=== PATIENT | female | born 1975 | race Hispanic/Latino ===

== ENCOUNTER 2021-12-09 18:47 | Emergency (ER) | payer OTHER ==
[~2021-12-09] VITALS: Ht 172.7 cm; Wt 79.4 kg
[2021-12-09 22:22] VITALS: BP 110/63
[2021-12-09] MEDS ORDERED: MAGNESIUM CITRATE 296 ML SOLUTION ONE (22:36)
[2021-12-09] MEDS ORDERED: MAGNESIUM CITRATE 296 ML SOLUTION PO ONE (23:00)
== END 2021-12-09 22:43 | disposition home or self-care (01) ==
LOC: EDH 18:47
DX: K59.00 Constipation, unspecified (principal); R14.0 Abdominal distension (gaseous); F41.9 Anxiety disorder, unspecified; Z98.890 Other specified postprocedural states
CPT/HCPCS: 74018; 81025

== ENCOUNTER 2022-05-08 16:44 | Emergency (ER) | payer OTHER ==
[~2022-05-08] VITALS: Ht 172.7 cm; Wt 77.3 kg
[2022-05-08 17:03] LABS: BASOPHILS % (AUTO) 0.4 % (0.0-5.0); EOSINOPHILS % (AUTO) 0.9 % (0.0-8.0); HEMATOCRIT 39.7 % (36-48); LYMPHOCYTES % (AUTO) 18.1 % (21.0-51.0); MEAN CORPUSCULAR HEMOGLOBIN 29.9 pg (27.0-33.0); MONOCYTES % (AUTO) 7.5 % (3.0-13.0); NEUTROPHILS % (AUTO) 72.8 % (40.0-77.0); PLATELET COUNT (AUTO) 211 K/uL (130-400); RED BLOOD CELL COUNT(AUTO) 4.51 MIL/uL (4.00-5.50); RED CELL DISTRIBUTION WIDTH 12.3 % (11.0-15.5); WHITE BLOOD COUNT (AUTO) 7.6 K/uL (4.8-10.8)
[2022-05-08 17:48] LABS: CREATININE 0.7 mg/dL (0.5-1.5); POTASSIUM 3.9 mmol/L (3.5-5.1)
[2022-05-08 17:52] LABS: ALBUMIN 3.8 g/dL (3.5-5.0); BILIRUBIN,TOTAL 0.2 mg/dL (0.2-1.0); TOTAL PROTEIN, SERUM 7.3 g/dL (6.0-8.3)
[2022-05-08] MEDS ORDERED: LORAZEPAM 2 MG/ML 1 ML VIAL ONE (18:14)
[2022-05-08] MEDS ORDERED: HALOPERIDOL INJ 5 MG/ML VIAL IV SCH (21:30)
[2022-05-08] MEDS ORDERED: DiphenhydrAMINE HCL 50 MG/ML VIAL IV ONE (21:30)
[2022-05-08 22:29] VITALS: BP 119/65
== END 2022-05-08 22:39 | disposition home or self-care (01) ==
LOC: EDH 16:44
DX: F44.9 Dissociative and conversion disorder, unspecified (principal); R47.81 Slurred speech; F41.9 Anxiety disorder, unspecified; F32.A Depression, unspecified; Z20.822 Contact with and (suspected) exposure to COVID-19
CPT/HCPCS: 36415; 70450; 70551; 80053; 85025; 87635; 93005; 96374; 96375; 99285; C9803; J1200; J1630; J2060

== ENCOUNTER 2025-09-15 13:49 | Emergency (ER) | payer SELFPAY ==
[~2025-09-15] VITALS: Ht 172.7 cm; Wt 83.9 kg
--- NOTE | 2025-09-15 14:22 | EKG ---
[facility] Test Date: 2025-09-15 Test Time: 14:16:55 Pat Name: DAINA SAXENA Department: ED Room: Gender: F Qc Lab Technician: [id number] : 1975 Requested By: EMMANUEL YARBROUGH Order Number: [id number] Reading MD: Andrea Low Measurements Intervals [place] Rate: 70 P: 42 VT: 180 QRS: -8 QRSD: 95 T: 53 QT: 398 QTc: 429 Interpretive Statements Sinus rhythm Anteroseptal infarct, age indeterminate Compared to ECG 05/08/2022 17:00:16 No significant changes Electronically Signed On 09-16-2025 19:21:26 [employer] by Andrea Low Please click the below link to view image of tracing.
[2025-09-15 14:33] LABS: IMMATURE GRANULOCYTE ABSOLUTE 0.03 K/uL (0-1); NUCLEATED RED BLOOD CELLS 0.0 % (0.0-0.19); PLATELET COUNT (AUTO) 195 K/uL (130-400); RED BLOOD CELL COUNT(AUTO) 4.25 MIL/uL (4.00-5.50); RED CELL DISTRIBUTION WIDTH 13.0 % (11.0-15.5); WHITE BLOOD COUNT (AUTO) 7.2 K/uL (4.8-10.8)
[2025-09-15 14:42] LABS: CREATININE 0.5 mg/dL (0.5-1.0); GLOMERULAR FILTR. RATE CALC 115.0 mL/min (>90); GLUCOSE,RANDOM 111.0 mg/dL (70-105); SODIUM SERUM 138.0 mmol/L (136-145); UREA NITROGEN, BLOOD 12.0 mg/dL (7-18)
[2025-09-15 14:47] LABS: ASPARTATE AMINOTRANSFERASE 12.0 U/L (10-37); TOTAL PROTEIN, SERUM 6.7 g/dL (6.0-8.3)
--- NOTE | 2025-09-15 15:25 | ERN ---
ED Note History of Present Illness Stated Complaint: EPIGASTRIC PAIN Chief Complaint: Abdominal Pain Time Seen by MD: 13:53 Time Seen by Midlevel: 14:00 Dictation: 50-year-old female coming in with complaints of epigastric pain when she was eating. Patient states he has felt a sharp pain when she was taking a better for food. Denies eating any spicy, greasy, fried foods. Denies any chest pain or chest discomfort at this time. Denies any fever, nausea vomiting or any abdominal pain. Allergies: Coded Allergies: No Known Allergies (Unverified Allergy, Unknown, 12/09/21) Past Medical History Past Medical History: Anxiety, Other Additional Past Medical Hx: INSOMNIA, GUILLENS BARRE Surgical History: Other Surgical History Other: JAW Social History: Negative, Lives with family History: Not Applicable LMP: Aug 28, 2025 Review of System Dictation Constitutional: Negative for fever,chills, and weight loss Eyes: Negative for injury, pain,redness, and discharge ENT: Negative for injury,pain or swelling Cardiovascular: Negative for chest pain, palpitations, and edema Respiratory: Negative for shortness of breath, cough, and wheezing, Abdomen/GI: Epigastric pain Back: Negative for injury and pain : Negative for injury, bleeding and discharge MS/Extremity: Negative for injury and deformity Skin: Negative for rash, and discoloration Neuro: Negative for headache, weakness, numbness, tingling, and seizure Psych: Negative for suicide ideation, homicidal ideation, and hallucinations Review of Systems: was completed Initial Vital Sign VS Vital Signs Date Time Temp Pulse Resp B/P (MAP) Pulse Ox O2 Delivery O2 Flow Rate FiO2 09/15/25 13:51 97.9 79 16 119/71 99 Room Air 0 Physical Exam Dictation General: awake, alert, NAD Head/Face: Normocephalic, atraumatic Eyes: PERRL, EOMI, vision at baseline ENT: oral cavity clear, TMs clear, no signs of infection Neck: Trachea midline, supple, no nuchal rigidity Cardiovascular: RRR, normal S1/S2, No MRGs, no JVD Respiratory: CTAB, no respiratory distress, No rales or wheezes Abdomen: Soft, non-tender, non-distended, normal bowel sounds, no guarding or rebound. Skin: Warm, dry, normal turgor, no rash MS/Extremity: Pulses equal, no cyanosis, neurovascular intact, FROM Neuro: COAx4, GCS 15, strength 5/5, CN 2-12 intact, normal cerebellar exam, normal gait, Psych: Normal behavior, mood, and affect normal Results (Laboratory/Radiology) Laboratory/Radiology Laboratory Tests Test 09/15/25 14:25 White Blood Count 7.2 K/uL (4.8-10.8) Red Blood Count 4.25 MIL/uL (4.00-5.50) Hemoglobin 12.5 g/dL (12.0-16.0) Hematocrit 37.9 % (36-48) Mean Corpuscular Volume 89.2 fL (79-99) Mean Corpuscular Hemoglobin 29.4 pg (27.0-33.0) Mean Corpuscular Hemoglobin Concent 33.0 g/dL (32.0-36.0) Red Cell Distribution Width 13.0 % (11.0-15.5) Platelet Count 195 K/uL (130-400) Mean Platelet Volume 9.7 fL (7.5-10.5) Immature Granulocyte % (Auto) 0.4 % (0-1) Neutrophils (%) (Auto) 78.6 % (40.0-77.0) H Lymphocytes (%) (Auto) 13.2 % (21.0-51.0) L Monocytes (%) (Auto) 6.3 % (3.0-13.0) Eosinophils (%) (Auto) 1.1 % (0.0-8.0) Basophils (%) (Auto) 0.4 % (0.0-5.0) Neutrophils # (Auto) 5.6 K/uL (1.8-7.7) Lymphocytes # (Auto) 1.0 K/uL (1.0-4.8) Monocytes # (Auto) 0.5 K/uL (0.1-1.0) Eosinophils # (Auto) 0.08 K/uL (0.00-0.70) Basophils # (Auto) 0.03 K/uL (0.00-0.20) Absolute Immature Granulocyte (auto 0.03 K/uL (0-1) Nucleated Red Blood Cells 0.0 % (0.0-0.19) Sodium Level 138 mmol/L (136-145) Potassium Level 3.7 mmol/L (3.5-5.1) Chloride Level 103 mmol/L (101-111) Carbon Dioxide Level 26 mmol/L (21-32) Blood Urea Nitrogen 12 mg/dL (7-18) Creatinine 0.5 mg/dL (0.5-1.0) Glomerular Filtration Rate Calc 115 mL/min (>90) Random Glucose 111 mg/dL (70-105) H Total Calcium 8.5 mg/dL (8.5-10.1) Total Bilirubin 0.2 mg/dL (0.2-1.0) Direct Bilirubin 0.1 mg/dL (0.0-0.3) Aspartate Amino Transf (AST/SGOT) 12 U/L (10-37) Alanine Aminotransferase (ALT/SGPT) 15 U/L (12-78) Alkaline Phosphatase 85 U/L (50-136) Troponin I High Sensitivity < 4 ng/L (4-50) L Total Protein 6.7 g/dL (6.0-8.3) Albumin 3.7 g/dL (3.5-5.0) Lipase 38 U/L (16-77) Labs Reviewed?: Yes ED Course ED Course Orders Procedure Category Date Status Time Cbc With Differential LAB 09/15/25 Complete 14:13 Basic Metabolic Panel LAB 09/15/25 Complete 14:13 Lipase LAB 09/15/25 Complete 14:13 Hepatic Function Panel LAB 09/15/25 Complete 14:13 Troponin I High LAB 09/15/25 Complete Sensitivity 14:13 12 Lead Ekg Tracing- EKG 09/15/25 Complete Technical 14:13 Lidocaine Hcl 2% PHA 09/15/25 In Process Viscous (Lidocaine Hcl 15:30 Mag/Alum/Simeth 30ml PHA 09/15/25 In Process (Maalox Plus 30ml) 15:30 Dicyclomine Hcl PHA 09/15/25 In Process (Bentyl 10mg/5ml 15:30 Current Medications Medications (Trade) Dose Ordered Sig/Uriel Route PRN Reason Start Time Stop Time Status Last Admin Dose Admin Al Hydroxide/Mg Hydroxide (MAALox PLUS 30ML) 30 ml ONCE ONCE PO 09/15/25 15:30 09/15/25 15:31 Dicyclomine HCl (Bentyl 10mg/5ml Syrup) 10 mg ONCE ONCE PO 09/15/25 15:30 09/15/25 15:31 Lidocaine HCl (Lidocaine HCl 2% Viscous) 10 ml ONCE ONCE PO 09/15/25 15:30 09/15/25 15:31 Vital Signs Date Time Temp Pulse Resp B/P (MAP) Pulse Ox O2 Delivery O2 Flow Rate FiO2 09/15/25 13:51 97.9 79 16 119/71 99 Room Air 0 Medical Decision Making MDM MDM: 50-year-old female coming in with complaints of epigastric pain when she was eating. Patient states he has felt a sharp pain when she was taking a better for food. Denies eating any spicy, greasy, fried foods. Denies any chest pain or chest discomfort at this time. Denies any fever, nausea vomiting or any abdominal pain. Laboratory any foul within normal range. Troponin is negative. EKGs shows no ST elevations or dysrhythmias. More than likely patient has symptoms related to GERD, dyspepsia. Educated patient to follow up with the PCP in 1-2 days, return to the hospital as needed. Patient verbalized understanding, answered all questions. Differential diagnosis: gerd, ACS, pancreatitis Rationale: Tests considered and ordered secondary to shared decision making include: Previous outside records reviewed: Old ER visits. Risk of complication and/or morbidity or mortality of patient management: None Medications-Per medication reconciliation Need for hospitalization: Patient does not meet criteria for hospitalization. Need for emergency major/minor surgery: No There are no social concerns with this patient. Prescription drug management Prescriptions will include symptomatic care Patient's prior external medical records from other ER visits were reviewed by me as indicated. Prior testing and results from previous visits were reviewed. Prior tests were taken into account with medical decision making and resource utilization, independent historian/historians were used to obtain complete medical history. I independently interpreted the test that were performed, results were reviewed by me and considered findings on radiology if ordered. Medical management and examination interpretation discussions were had by me with other qualified healthcare professionals as indicated for the patient's care. DX & DISP Disposition: Discharge Departure Impression: Primary Impression: Dyspepsia Additional Impression: GERD (gastroesophageal reflux disease) Condition: Stable Additional Instructions: Your Lab work looks normal. Your liver, kidney, and pancreas all within normal limits. Please follow up with your primary care doctor in 1-2 days, return to the hospital as needed. Referrals: HAYLIE HODGSON (PCP) Time of Disposition: 15:24 I have reviewed the case, and I agree with, Diagnosis and Plan EMMANUEL YARBROUGH [facility] Sep 15, 2025 15:25
[2025-09-15] MEDS: DICYCLOMINE HCL 10 MG/5 ML ML PO ONE (16:10)
[2025-09-15] MEDS: MAG/ALUM/SIMETH 30 ML UDCUP PO ONE (16:10)
[2025-09-15] MEDS: LIDOCAINE HCL 2% VISCOUS 15 ML UDCUP PO ONE (16:10)
[2025-09-15 16:44] VITALS: BP 121/79; PULSE 76; RESP 16; TEMP 97.9; O2SAT 99
== END 2025-09-15 16:45 | disposition home or self-care (01) ==
LOC: EDH 13:49
DX: K21.9 Gastro-esophageal reflux disease without esophagitis (principal)
CPT/HCPCS: 36415; 80048; 80076; 83690; 84484; 85025; 93005; 99284